=== PATIENT | male | born 1945 | race Caucasian/White ===

== ENCOUNTER 2021-01-30 11:32 | Outpatient (REF) | payer MEDICARE, SELFPAY ==
--- NOTE | ~2021-01-30 | XR_ITS ---
EXAMINATION: XR LUMBOSACRAL SPINE WITH OBLIQUES CLINICAL INFORMATION: Low back pain COMPARISON: None TECHNIQUE: AP, both oblique, and lateral views of the lumbar spine. Lateral view of the lumbosacral junction. FINDINGS: There is mild curvature of the lower lumbar spine to the right. Bone alignment is otherwise normal. No fracture or dislocation is seen. There is multilevel degenerative spondylosis. There is degenerative disc disease at L5-S1. 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 No pars defect is seen. There is evidence of atherosclerotic disease. XR/XR lumbar spine 4V min IMPRESSION: Degenerative changes with degenerative disc disease at L5-S1, lower lumbar spine facet arthritis and multilevel degenerative spondylosis.
== END 2021-01-30 11:33 | disposition home or self-care (01) ==
LOC: HO.XRAY 11:32
PROVIDERS: PCP Nurse Practitioner; Visit Provider Nurse Practitioner Family
DX: M54.5 Low back pain (principal)
CPT/HCPCS: 72110

== ENCOUNTER 2021-12-17 13:51 | Outpatient (REF) | payer MEDICARE, SELFPAY ==
--- NOTE | ~2021-12-17 | CT_ITS ---
EXAMINATION: CT ABDOMEN AND PELVIS WITHOUT CONTRAST CLINICAL INFORMATION: Hematuria, flank pain. COMPARISON: None TECHNIQUE: Multidetector volumetric imaging was performed from the superior aspect of the liver through the pubic symphysis. Sagittal and coronal reformatted images were obtained on the technologist's workstation. This CT examination was performed using dose optimization techniques as appropriate, variously including the following: *Automated exposure control *Adjustment of mA and/or kV according to patient size (this includes techniques or standardized protocols for targeted exams where dose is matched to indication/reason for exam; i.e. extremities or head) *Use of iterative reconstruction technique DLP: 454 mGy-cm FINDINGS: LUNG BASES: The lung bases are clear. The heart size is normal. LIVER, GALLBLADDER, AND BILIARY TREE: The liver is normal in size, shape, and attenuation. No focal hepatic lesion or biliary ductal dilatation is present. The gallbladder is unremarkable with no evidence of radiopaque gallstones, gallbladder wall thickening, or obvious pericholecystic inflammatory changes. PANCREAS: Unremarkable. SPLEEN: Unremarkable. ADRENAL GLANDS: Unremarkable. KIDNEYS AND URETERS: The kidneys are normal in size, shape, and attenuation. There are two, 2 mm nonobstructive radiopaque calculi in the mid pole of the left kidney. There is a peripelvic right renal cyst. Minimal bilateral perinephric stranding is seen. BLADDER: There is mild bladder wall thickening but no radiopaque calculi are seen. There is hypertrophic changes along the superoposterior aspect of the pubic symphysitis indenting the anterior bladder wall. GASTROINTESTINAL TRACT: There is scattered stool and gas seen throughout the colon without any significant distention. Appendix is normal in caliber. The small bowel loops are of normal caliber. ABDOMINAL WALL: No significant hernia is appreciated. LYMPH NODES: Normal. VASCULAR: There is atherosclerotic calcification of the abdominal aorta without aneurysmal dilatation. PELVIC VISCERA: The prostate gland is mildly enlarged extending to the base of the bladder. OSSEOUS STRUCTURES: Anterior superior thickening of the pubic symphysis is likely a large enthesophyte. There are degenerative disc changes and vacuum disc phenomena L4-L5 and L5-S1 disc levels with moderate ventral spondylosis. CT/CT abdomen pelvis wo con IMPRESSION: There are two, 2 mm radiopaque calculi at the midpole of the left kidney without caliectasis or hydronephrosis. There are right renal parapelvic cysts in the lower pole. No hydronephrosis or radiopaque calculi. Mild prostate enlargement extending into the base of bladder with anterior bladder wall thickening. Mild constipation. Normal appendix..
== END 2021-12-17 13:52 | disposition home or self-care (01) ==
LOC: HO.CT 13:51
PROVIDERS: PCP Nurse Practitioner; Visit Provider Emergency Medicine
DX: R31.29 Other microscopic hematuria (principal); R10.9 Unspecified abdominal pain; Z80.42 Family history of malignant neoplasm of prostate
CPT/HCPCS: 74176

== ENCOUNTER 2023-04-26 09:54 | Outpatient (REF) | payer OTHER, MEDICAID, SELFPAY ==
--- NOTE | ~2023-04-26 | XR_ITS ---
EXAMINATION: XR HIP, LEFT CLINICAL INFORMATION: Chronic left hip pain. COMPARISON: None available. TECHNIQUE: AP and frog-leg lateral views of the left hip. FINDINGS: No fracture. Alignment is anatomic. Hip joint space is maintained. The femoral heads are smooth. 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 The soft tissue planes are unremarkable. XR/XR hip LT min 2V IMPRESSION: Unremarkable radiographic appearance of the left hip.
[2023-04-26 11:19] LABS: Appearance Urine Clear; Color Urine Yellow; Glucose Urine UA Negative (Negative); Leukocyte Esterase Urine Trace (Negative); Nitrite Urine Negative (Negative); PH 5.5 (5.0-9.0); Specific Gravity - Urine 1.025 (1.005-1.025); UMIC TRIGGER UACC YES; Urine Blood Small (1+) (Negative); Urine Ketones Negative (Negative); Urine Protein Negative (Neg-Trace)
[2023-04-26 11:42] LABS: Bacteria Urine None Seen (None Seen); Calcium Oxalate Crystals Urine Present; Hyaline Casts Urine 0-2 /LPF (0-2); UACC Culture Trigger YES
[2023-04-26 12:04] LABS: Estimated Average Glucose 126 mg/dL
[2023-04-26 12:07] LABS: Alanine Aminotransferase 14 U/L (0-40); Albumin Level 4.5 g/dL (3.5-5.0); Alkaline Phosphatase 81 U/L (39-117); Anion Gap 13 (12-20); Aspartate Amino Transferase 20 U/L (5-37); Bilirubin Total 0.8 mg/dL (0.0-1.0); Blood Urea Nitrogen 19 mg/dL (9-16); Calcium 9.6 mg/dL (8.4-10.2); Carbon Dioxide 26 mmol/L (22-29); Chloride 102 mmol/L (96-108); Cholesterol 164 mg/dL (<200); Estimated Glomerular Filt Rate > 60; Glucose Random 110 mg/dL (60-115); HDL Cholesterol 49 mg/dL (>40); LDL Cholesterol Calculated 91 mg/dL (<100); Potassium 4.7 mmol/L (3.3-5.1); Sodium 136 mmol/L (135-145); Total Protein 8.3 g/dL (6.5-8.0); Triglycerides 124 mg/dL (<150)
[2023-04-26 12:09] LABS: TSH reflex Free T4 3.29 uIU/mL (0.32-4.0)
== END 2023-04-26 09:55 | disposition home or self-care (01) ==
LOC: HO.HHCL 09:54
PROVIDERS: Visit Provider General Practice
DX: I10 Essential (primary) hypertension (principal); E03.9 Hypothyroidism, unspecified; M25.552 Pain in left hip; R82.90 Unspecified abnormal findings in urine; R73.03 Prediabetes
CPT/HCPCS: 36415; 73502; 80053; 80061; 81001; 83036; 84443; 87086

== ENCOUNTER 2023-05-31 14:44 | Outpatient (REF) | payer OTHER, MEDICAID, SELFPAY ==
--- NOTE | ~2023-05-31 | US_ITS ---
EXAMINATION: US RETROPERITONEAL LIMITED (RENAL ONLY) CLINICAL INFORMATION: Chronic left flank pain. COMPARISON: CT abdomen and pelvis without contrast 12/17/2021. TECHNIQUE: Real-time imaging of the kidneys. Limited visualization due to bowel gas. FINDINGS: RIGHT KIDNEY: 11.4 x 5.6 x 5.8 cm (SAG x AP x TRV). Renal cortical thickness is normal. A 2.0 x 1.8 x 2.0 cm anechoic central fluid collection likely represents a parapelvic cyst rather than an extrarenal pelvis and was identified on prior CT scan. There is a 0.3 cm lateral lower pole calculus. Limited visualization. LEFT KIDNEY: 11.3 x 5.3 x 5.4 cm (SAG x AP x TRV). There are 2 mid pole calculi each measuring 0.3 cm. No hydronephrosis. Renal cortical thickness is normal. Limited visualization. US/US renal BI IMPRESSION: 1. Bilateral nonobstructive renal calculi. No hydronephrosis. 2. Right renal 2.0 cm parapelvic cyst.
== END 2023-05-31 14:45 | disposition home or self-care (01) ==
LOC: HO.US 14:44
PROVIDERS: Visit Provider General Practice
DX: R10.9 Unspecified abdominal pain (principal)
CPT/HCPCS: 76775

== ENCOUNTER 2024-01-17 16:09 | Outpatient (REF) | payer MEDICARE, SELFPAY | END 2024-01-17 16:10 | disposition home or self-care (01) | LOC: HO.HHCLNP 16:09 | PROVIDERS: Visit Provider General Practice | DX: R31.0 Gross hematuria (principal) | CPT/HCPCS: 87086 ==

== ENCOUNTER 2024-01-21 11:38 | Outpatient (REF) | payer MEDICARE, SELFPAY ==
--- NOTE | ~2024-01-21 | US_ITS ---
EXAMINATION: US RETROPERITONEAL COMPLETE (RENAL) CLINICAL INFORMATION: Gross hematuria. COMPARISON: 05/31/2023, 12/17/2021 TECHNIQUE: Real-time imaging of the kidneys and bladder. Limited visualization due to bowel gas. FINDINGS: RIGHT KIDNEY: 11.2 x 5.5 x 5.6 cm (SAG x AP x TRV). No hydronephrosis. No renal calculi. Renal cortical thickness is normal. Limited visualization. Multiple renal cysts, largest 2.2 cm. LEFT KIDNEY: 12.1 x 6.3 x 5.5 cm (SAG x AP x TRV). 0.2 cm mid pole calculus. No hydronephrosis. Renal cortical thickness is normal. Limited visualization. 0.9 cm midpole pole cyst with benign features. There is no indication for follow-up imaging. Hypoechoic area near the cortex of the lower pole of the left kidney may represent a small amount of free fluid, versus atypical cyst versus other etiology. US/US renal BI IMPRESSION: 1. 0.2 cm left renal calculus. No hydronephrosis. 2. Hypoechoic area near the cortex of the lower pole of the left kidney may represent a small amount of free fluid, versus atypical cyst versus other etiology and was not identified on the prior exam. CT scan recommended for further evaluation. Electronically signed by: Ailin Hays MD 01/26/2024 03:53 PM EDT
== END 2024-01-21 11:39 | disposition home or self-care (01) ==
LOC: HO.US 11:38
PROVIDERS: PCP General Practice; Visit Provider General Practice
DX: R31.0 Gross hematuria (principal)
CPT/HCPCS: 76775

== ENCOUNTER 2024-02-22 12:14 | Outpatient (REF) | payer MEDICARE, SELFPAY ==
--- NOTE | ~2024-02-22 | XR_ITS ---
EXAMINATIONS: XR KNEE, RIGHT XR KNEE, LEFT CLINICAL INFORMATION: Bilateral knee pain with ambulation. Limited range of motion. COMPARISON: None available. TECHNIQUES: Four views of the right knee. Four views of the left knee. FINDINGS: Right: Normal variant bipartite patella. No fracture or joint effusion patient. Alignment is anatomic. Mild joint space narrowing most notably involving the lateral compartment. No abnormal soft tissue calcification. Mild vascular calcification. Left: No fracture or joint effusion patient. Alignment is anatomic. Mild to moderate joint space narrowing most notably involving the medial compartment. No abnormal soft tissue calcification. XR/XR knee LT 4V IMPRESSION: Mild joint space narrowing of the right knee most notably involving the lateral compartment. Mild to moderate joint space narrowing of the left knee most notably involving the medial compartment. Electronically signed by: Delvis Schmitt MD 02/22/2024 02:02 PM EDT
--- NOTE | ~2024-02-22 | XR_ITS ---
EXAMINATIONS: XR KNEE, RIGHT XR KNEE, LEFT CLINICAL INFORMATION: Bilateral knee pain with ambulation. Limited range of motion. COMPARISON: None available. TECHNIQUES: Four views of the right knee. Four views of the left knee. FINDINGS: Right: Normal variant bipartite patella. No fracture or joint effusion patient. Alignment is anatomic. Mild joint space narrowing most notably involving the lateral compartment. No abnormal soft tissue calcification. Mild vascular calcification. Left: No fracture or joint effusion patient. Alignment is anatomic. Mild to moderate joint space narrowing most notably involving the medial compartment. No abnormal soft tissue calcification. XR/XR knee RT 4V IMPRESSION: Mild joint space narrowing of the right knee most notably involving the lateral compartment. Mild to moderate joint space narrowing of the left knee most notably involving the medial compartment. Electronically signed by: Delvis Scmhitt MD 02/22/2024 02:02 PM EDT RP
== END 2024-02-22 12:15 | disposition home or self-care (01) ==
LOC: HO.HHCX 12:14
PROVIDERS: Visit Provider General Practice
DX: M25.562 Pain in left knee (principal); M25.561 Pain in right knee; G89.29 Other chronic pain
CPT/HCPCS: 73564

== ENCOUNTER 2024-04-10 10:15 | Outpatient (REF) | payer MEDICARE, SELFPAY ==
[2024-04-10 11:37] LABS: MANUAL DIFF FLAG NO
[2024-04-10 12:03] LABS: Basophils Absolute Auto 0.1 X10*3/uL (0.0-0.2); Basophils Percent Auto 0.8 % (0-2); Eosinophils Absolute Auto 0.1 X10*3/uL (0.0-0.4); Eosinophils Percent Auto 1.4 % (0-4); Hematocrit 52.1 % (42.0-52.0); Hemoglobin 17.7 g/dl (14.0-18.0); Imm Gran Abs Auto 0.07 X10*3/uL (0.00-0.03); Imm Gran Pct Auto 0.9 % (0.0-0.4); Mean Corpuscular Hemoglobin 30.7 pg (27.0-33.0); Mean Corpuscular Volume 90.3 fL (80.0-98.0); Mean Platelet Volume 9.9 fL (9.4-12.4); Monocytes Absolute Auto 0.7 X10*3/uL (0.1-1.2); Monocytes Percent Auto 8.7 % (2-11); Neutrophils Absolute Auto 4.8 x10*3/uL (2.0-8.3); Neutrophils Percent Auto 62.2 % (45-73); Platelet Count 272 X10*3/uL (160-400); Red Blood Count 5.77 X10*6/uL (4.60-5.80); Red Cell Distribution Width 13.1 % (11.0-16.0); White Blood Count 7.7 X10*3/uL (4.8-10.8)
[2024-04-10 12:21] LABS: Alanine Aminotransferase 24 U/L (0-40); Albumin Level 4.3 g/dL (3.5-5.0); Alkaline Phosphatase 75 U/L (39-117); Anion Gap 12 (12-20); Aspartate Amino Transferase 25 U/L (5-37); Bilirubin Total 0.4 mg/dL (0.0-1.0); Blood Urea Nitrogen 15 mg/dL (9-16); Calcium 9.3 mg/dL (8.4-10.2); Carbon Dioxide 29 mmol/L (22-29); Chloride 102 mmol/L (96-108); Estimated Glomerular Filt Rate > 60; Glucose Random 169 mg/dL (60-115); Sodium 139 mmol/L (135-145); Total Protein 7.8 g/dL (6.5-8.0)
[2024-04-10 12:25] LABS: Prostate Specific Antigen 0.27 ng/mL (<0.05-4.0)
[2024-04-10 12:48] LABS: TSH reflex Free T4 4.87 uIU/mL (0.32-4.0)
[2024-04-10 13:34] LABS: Free T4 (Free Thyroxine) 0.79 ng/dL (0.71-1.85)
[2024-04-13 03:48] LABS: TS Negative Control Passed; TS Panel A 0; TS Panel B 0; TS Positive Control Passed; TSpotTB Negative (Negative)
== END 2024-04-10 10:16 | disposition home or self-care (01) ==
LOC: HO.HHCL 10:15
PROVIDERS: Visit Provider General Practice
DX: Z00.00 Encounter for general adult medical examination without abnormal findings (principal); Z11.1 Encounter for screening for respiratory tuberculosis; Z12.5 Encounter for screening for malignant neoplasm of prostate; D45 Polycythemia vera; I10 Essential (primary) hypertension; E03.9 Hypothyroidism, unspecified; N39.0 Urinary tract infection, site not specified
CPT/HCPCS: 36415; 80053; 84153; 84439; 84443; 85025; 86481; 87086

== ENCOUNTER 2024-07-13 16:16 | Outpatient (REF) | payer MEDICARE, SELFPAY ==
--- OUTSIDE RECORDS SUMMARY | 2024-07-13 16:49 | XMS_ITS | Encounter Summary ---
Author Organization [employer] Address [address] [place] [address] Care Team Providers Care Rn Neonatal Icu Name Role Phone Jill Feliciano MD Primary Care Provider [phone] Encounter Details Date Type Department Care Team (Latest Contact Info) Description 07/13/2024 Travel Social History Tobacco Use Types Packs/Day Years Used Date Smoking Tobacco: Former Cigarettes Smokeless Tobacco: Never Alcohol Use Standard Drinks/Week Comments Never 0 (1 standard drink = 0.6 oz pur e alcohol) Depression Answer Date Recorded Patient Health Questionnaire-9 Score 0 07/23/2023 Patient Health Questionnaire-9 Score 0 07/23/2023 Last PHQ-9: Questionnaire Data Not on file 0 07/23/2023 Housing Stability Answer Date Recorded What is your housing situation today? I have jorge rizzo 07/15/[address] you li ve. Do you have problems with any of the following? None of the above 07/15/2023 Food Insecurity Answer Date Recorded Within the past 12 months, y ou worried that your food would run out before you got money to buy more: Never True 07/15/2023 Within the past 12 months,th e food you bought just didn't last and you didn't have enough money to get more: Never True Transportation Answer Date Recorded In the past 12 months, has l ack of transportation kept you from medical appts, meetings, work or from getting things needed for daily living? Yes, it has kept me from medical appointments or getting medications. 07/23/2023 Utilities Answer Date Recorded In the past 12 months, has t he electric, gas, oil or water company threatened to shut off services in your home? No 07/15/2023 Depression Answer Date Recorded Patient Health Questionnaire-2 Score 0 07/23/2023 Sex and Gender Information Value Date Recorded Sex Assigned at Male 03/23/2022 10:33 AM EDT Legal Sex Male 10:33 AM EDT Gender Identity Male 03/23/2022 10:33 AM EDT Sexual Orientation Don't know 03/23/2022 10 :33 AM EDT documented as of this encounter Plan of Treatment Upcoming Encounters Date Type Department Care Team (Late st Contact Info) Description 09/05/2024 10:30 AM EDT Office Visit [facility] [address] [place] [address] Jill Feliciano MD [address] [place] [address] documented as of this encounter Visit Diagnoses Not on filedocumented in this encounter Additional Health Concerns Assessment Noted Time PHQ-9 Depression Total Score: 0 07/23/19 24 10:42 AM EST documented as of this encounter Care Teams Rn Neonatal Icu Relationship Specialty Start Date End Date Jill Feliciano MD [address] [place] [phone] PCP - General Family Medicine 01/13/22 documented as of this encounter
--- OUTSIDE RECORDS SUMMARY | 2024-07-13 16:49 | XMS_ITS | Encounter Summary ---
Author Organization [employer] Address [address] [place] [address] Care Team Providers Care Electrical Hardware Engineer Name Role Phone Jill Feliciano MD Primary Care Provider [phone] Encounter Details Date Type Department Care Team (Late Contact Info) Description 01/22/2023 Abstract [facility] [address] [place] [address] [phone] Jill Feliciano MD [address] [place] [address] [phone] Social History Tobacco Use Types Packs/Day Years Used Date Smoking Tobacco: Former Cigarettes Smokeless Tobacco: Never Alcohol Use Standard Drinks/Week Comments Never 0 (1 standard drink = 0.6 oz pur e alcohol) Depression Answer Date Recorded Patient Health Questionnaire-9 Score 0 06/12/2022 Depression Answer Date Recorded Patient Health Questionnaire-2 Score 0 06/12/2022 Sex and Gender Information Value Date Recorded Sex Assigned at Male 03/23/2022 10:33 AM EDT Legal Sex Male 10:33 AM EDT Gender Identity Male 03/23/2022 10:33 AM EDT Sexual Orientation Don't know 03/23/2022 10 :33 AM EDT documented as of this encounter Plan of Treatment Upcoming Encounters Date Type Department Care Team (Late st Contact Info) Description 09/05/2024 10:30 AM EDT Office Visit [facility] [address] [place] [address] [phone] Jill Feliciano MD [address] [place] [address] [phone] documented as of this encounter Visit Diagnoses Not on filedocumented in this encounter Additional Health Concerns Assessment Noted Time PHQ-9 Depression Total Score: 0 06/12/19 23 11:12 AM EST documented as of this encounter Care Teams Electrical Hardware Engineer Relationship Specialty Start Date End Date Jill Feliciano MD [address] [place] [address] PCP - General Family Medicine 01/13/22 documented as of this encounter
--- OUTSIDE RECORDS SUMMARY | 2024-07-13 16:49 | XMS_ITS | Encounter Summary ---
Author Organization [employer] Address [address] [place] [address] Care Team Providers Care Senior Windows Administrator Name Role Phone Jill Feliciano MD Primary Care Provider [phone] Reason for Visit * Reason Onset Date Comments recall 06/29/2024 Encounter Details Date Type Department Care Team (Late st Contact Info) Description 06/29/2024 Telephone [facility] [address] [place], [place] [phone] Jazmine Coello MA recall Social History Tobacco Use Types Packs/Day Years [...] AM EDT documented as of this encounter Miscellaneous Notes * Telephone Encounter - Jazmine Coello MA - 06/29/2024 2:59 PM EST T/C placed spoke with pt, pt agreed to come in on 09/05/24 at 10:30am documented in this encounter Plan of Treatment Upcoming Encounters Date Type Department Care Team (Late st Contact Info) Description 09/05/2024 10:30 AM EDT Office Visit [facility] [address] [place] [address] Jill Feliciano MD [address] [place] [address] documented as of this encounter Visit Diagnoses Not on filedocumented in this encounter Additional Health Concerns Assessment Noted Time PHQ-9 Depression Total Score: 0 07/23/19 24 10:42 AM EST documented as of this encounter Care Teams Senior Windows Administrator Relationship Specialty Start Date End Date Jill Feliciano MD [address] [place] [address] PCP - General Family Medicine 01/13/22 documented as of this encounter
--- OUTSIDE RECORDS SUMMARY | 2024-07-13 16:49 | XMS_ITS | Clinical Summary ---
Author Organization [employer] Address [address] [place] [address] Care Team Providers Care High School Library Media Specialist Name Role Phone Jill Feliciano MD Primary Care Provider [phone] Allergies No known active allergies Medications tamsulosin (Flomax) 0.4 MG 24 hr capsule Take 1 capsule (0.4 mg) by mouth Once per day. 30 capsule 1 01/17/20 24 Active amLODIPine (Norvasc) 10 MG tabletIndications: Essential hypertension take 1 tablet by oral route every day for blood pressure 90 tablet 3 02/22/20 24 Active atorvastatin (Lipitor) 40 MG tabletIndications: Mixed hyperlipidemia take 1 tablet by oral route every day at bedtime for cholesterol 90 tablet 3 02/22/20 24 Active oxybutynin XL (Ditropan-XL) 10 MG 24 hr tablet Take 1 tablet (10 mg) by mouth Once per day. 90 tablet 3 02/22/20 24 025 Active ketoconazole (Nizoral) 2 % shampooIndications :Seborrheic dermatitis Apply topically 2 (two) times a week. 120 mL 3 02/24/20 24 Active spironolactone (Aldactone) 50 MG tablet Take 1 tablet (50 mg) by mouth Once per day. 90 tablet 3 02/22/20 24 025 Active losartan (Cozaar) 100 MG tablet Take 1 tablet (100 mg) by mouth Once per day. 90 tablet 3 04/10/20 24 025 Active levothyroxine (Synthroid) 75 MCG tablet Take 1 tablet (75 mcg) by mouth before breakfast. 90 tablet 3 05/18/20 24 025 Active acetaminophen (Tylenol Extra Strength) 500 MG tabletIndications: Breast pain, left Take 1 tablet (500 mg) by mouth every 6 (six) hours if needed for mild pain for up to 10 days. 30 tablet 07/13/19 25 025 Active Active Problems Problem Noted Date Diagnosed Date Bilateral primary osteoarthritis of knee 024 Assessment & Plan (04/10/2024 2:02 PM EST): Would like to have handicap placard Instructions given to see medical records today Left groin pain 07/23/2023 Assessment & Plan (07/23/2023 11:12 AM EST): L soft tissue US to determine LAD versus hernia, palpable mass is present Chronic left flank pain 04/28/2023 Assessment & Plan (04/28/2023 8:03 AM EST): UA suggestive of infection, though not definitive Will obtain urgent imaging of L kidney for kidney stone Consult urology here Hematuria 10/06/2022 Overview (02/22/2024): -Work up neg for malignancy 01/30/22. -Followed by Dr. Godwin of [facility] -Hematuria in past thought to be due to passing stones. -He was to follow up for Ultrasound in July with Urology. -Recommend f/o with urologist, referral replaced 02/22/24 -Encouraged increased fluid intake. Assessment & Plan (02/22/2024 12:49 PM EDT): Seen in walkin for gross hematuria 01/17/24, neg urine culture, renal ultrasound demonstrated nonobstructing stones and L kidney cyst Referral replaced to [facility], who had been following him previously Assessment & Plan (01/17/2024 9:52 AM EDT): Urine today shows mod blood, negative nitrates, small leukocytes. Urine culture sent No signs or pyelo or other systemic infection Will repeat renal ultrasound Trial Flomax x 30 days Followup with urology Assessment & Plan (10/06/2022 9:10 AM EDT): -Work up neg for malignancy 01/30/22. -Followed by Dr. Godwin of [facility] -Hematuria in past thought to be due to passing stones. -He was to follow up for Ultrasound in July with Urology. -Urine today shows small blood, negative nitrates, negative leukocytes. -Given dysuria will check for UTI. -Recommend f/o with urologist, he was given the number to call. Polycythemia vera 06/15/2022 Assessment & Plan (04/10/2024 2:05 PM EST): H/H today Assessment & Plan (06/15/2022 9:07 AM EST): Re-refer to hematology for phlebotomy H/H Erythrocytosis 06/10/2022 Obstructive sleep apnea syndrome 03/10/2022 Nephrolithiasis 03/03/2022 Prediabetes 03/03/2022 Assessment & Plan (06/15/2022 9:06 AM EST): Check A1C Low sugar/carb diet Benign prostatic hyperplasia 03/03/2022 Assessment & Plan (04/10/2024 2:03 PM EST): Continue Flomax PSA normal today See if urology needs to scope him due to hematuria Hypothyroidism 10/12/2021 Assessment & Plan (04/10/2024 2:03 PM EST): Continue Synthroid 50mcg daily in the AM before other medications Assessment & Plan (04/28/2023 8:04 AM EST): Continue Synthroid 50mcg daily in the AM before other medications Assessment & Plan (06/15/2022 9:06 AM EST): On Synthroid 50mcg daily Check TSH Seborrheic dermatitis 03/15/2018 Assessment & Plan (06/15/2022 9:07 AM EST): Ketoconazole shampoo re-ordered Impacted cerumen 07/06/2017 Cervical spondylosis without myelopathy 07/06/19 18 Neck pain 06/22/2017 Hypertensive disorder 06/22/2017 Assessment & Plan (04/10/2024 2:01 PM EST): Increase Losartan to 100mg daily Pt is not at BP goal <140/90 Continue amlodipine 10, Lipitor 40 Assessment & Plan (02/22/2024 12:50 PM EDT): Wants to switch pharmacies now to [facility] Amlodipine 20, Lipitor 40, Oxybutynin, Losartan, Aldactone, Synthroid all sent there Assessment & Plan (07/27/2023 6:46 AM EST): Called Anurag on [facility] in [place] to transfer all of his medications. He says he will go pick them up today. He understands the risks of untreated hypertension Assessment & Plan (04/28/2023 8:05 AM EST): Normal renal function, restart Losartan and Spironalactone Continue to monitor BP at home Recheck with nurse visit in 2-4 weeks ER for any symptoms of ID or stroke Assessment & Plan (10/06/2022 9:23 AM EDT): Initial BP systolic 180, it did come down to 170. Pt states he took his medication this morning, asymptomatic. We discussed making sure he takes medication, maintains a low salt diet, and f/u with PCP 1 week for BP check. Assessment & Plan (06/15/2022 9:06 AM EST): Maintenance: controlled on Amlodipine 10mg, Lisinopril 20, hydrochlorothiazide 25mg BMP: Cr 1.54/eGFR 50 Lipid Panel: ASCVD Risk: Calculate pending updated labs EKG: Obtain baseline at f/u - Aerobic exercise to reduce BP. Initial goal of 30 min walk 3-5x/week. Increase as tolerated. - low-sodium diet (goal: <2g/day) and heart healthy diet such as DASH to reduce BP and prevent ASCVD. - Home BP monitoring 1-2 x day with goal of <140/90. - Seek immediate medical attention for chest pain, palpitations, SOB, syncope, or sudden changes in mental status. - Do not change or discontinue current prescriptions without first consulting health care provider Encounters Date Type Department Care Team Description 07/13/2024 4:00 PM EST Office Visit [facility] [address] [place] [address] Breast pain, left (Primary Dx); Elevated blood pressure reading in office with diagnosis of hypertension 07/13/2024 Travel 06/29/2024 Telephone [facility] [address] [place] [address] Jazmine Coello MA recall 05/18/2024 Orders Only [facility] [address] [place] [phone] Jill Feliciano MD 05/01/[address] [phone] Tamela Newby RN Results from Last 3 Months Immunizations Name Administration Dates Next Due Influenza injectable quadriv alent IIV4 with preservative 06/22/2017 Pfizer Covid-19 Vaccine 12+ 08/08/2020, Pneumococcal Conjugate PCV 13 06/22/2017 Pneumococcal Polysaccharide PPSV23 08/11/2021 Tdap 10/08/2021 Social History Tobacco Use Types Packs/Day Years Used Date Smoking Tobacco: Former Cigarettes Smokeless Tobacco: Never Tobacco Cessation:Counseling Given: Not Answered Alcohol Use Standard Drinks/Week Comments Never 0 [...] Don't know 03/23/2022 10 :33 AM EDT Last Filed Vital Signs Vital Sign Reading Time Taken Comments Blood Pressure 153/96 07/13/2024 3:50 PM EST Pulse 87 07/13/2024 3:50 PM EST Temperature 36.3 ??C (97.4 ??F) 07/13/2024 3:50 PM ES T Respiratory Rate 18 07/13/2024 3:50 PM EST Oxygen Saturation 97% 07/13/2024 3:50 PM EST Inhaled Oxygen Concentration - - Weight 84.2 kg (185 lb 9.6 oz) 07/13/2024 3:50 P M EST Height 170.2 cm (5' 7 ) 04/10/2024 9:37 AM EST Body Mass Index 29.07 04/10/2024 9:37 AM EST Plan of Treatment Upcoming Encounters Date Type Department Care Team (Late st Contact Info) Description 09/05/2024 10:30 AM EDT Office Visit [facility] [address] [place] [address] Jill Feliciano MD [address] [place] [address] Health Maintenance Due Date Last Done Comments Zoster Vaccines (1 of 2) 09/21/1997 RSV Patients and Patients Aged 60 years or older (1 - 1-dose 75+ series) 09/21/2022 COVID-19 Vaccine ( season) 2024 02/23/2022, 03/27/2021, 08/08/2020, Additional history exists Influenza Vaccine (#1) 2024 06/22/2017 Diabetes: Hemoglobin A1C 04/26/2024 023, 06/12/2022, 08/11/2021, Additional history exists Alcohol/Substance Use Screening 07/22/2024 07/23/2023 Depression Screening 07/22/2024 07/23/2023, 07/23/19 24 SDOH Screening 07/22/2024 07/23/2023 Tobacco Screening 04/10/2025 04/10/2024 Lipid Panel 04/26/2028 04/26/2023, 07/23, 01/24/2020 DTaP/Tdap/Td Vaccines (2 - Td or Tdap) 10/09/2031 10/08/2021 Colonoscopy Discontinued 07/29/2017 Colorectal Cancer Screening Discontinued Pneumococcal Vaccine: 50+ Years Completed 08/11/2021, 06/22/2017 Hepatitis C Screening Completed 10/08/2021 CT Colonography Discontinued FIT DNA/Cologuard Discontinued FIT Discontinued FOBT Discontinued HIB Vaccines Aged Out No longer eligi ble based on patient's age to complete this topic HPV Vaccines Aged Out No longer eligi ble based on patient's age to complete this topic Hepatitis A Vaccines Aged Out No long er eligible based on patient's age to complete this topic Hepatitis B Vaccines Aged Out No long er eligible based on patient's age to complete this topic IPV Vaccines Aged Out No longer eligi ble based on patient's age to complete this topic Meningococcal Vaccine Aged Out No ewelina manda eligible based on patient's age to complete this topic RSV under 20 months Aged Out No longe r eligible based on patient's age to complete this topic Rotavirus Vaccines Aged Out No longer eligible based on patient's age to complete this topic Sigmoidoscopy Discontinued Procedures Procedure Name Priority Date/Time Associated Diagnosis Comments HEMOGLOBIN A1C Routine 04/26/2023 9:56 AM EST Primary hypertension LIPID PANEL, STANDARD Routine 04/26/2023 9:56 AM EST Primary hypertension ZZZ HISTORICAL HEPATITIS C AB W/REFL TO HCV RNA, QN, PCR Routine 10/08/2021 2:44 PM EDT HM COLONOSCOPY Routine 07/29/2017 from Last 3 Months or Most Recently Relevant to Health Maintenance Results * Hemoglobin A1c (04/26/2023 9:56 AM EST) Hemoglobin A1c 6.0 <6.0 % [facility] Comment:Hemoglobin A1C Refer ence Range Adults: 4.8 - 6.0 % Non diabetic: < 6.0 % Goal: < 7.0 %Additional Action Suggested: > 8.0 %Note: Hemoglobin A1c results are invalid for patients with abnormal amounts of HbF. Blood transfusions may impact the HbA1c concentration in the patient sample. Estimated Average Glucose 126 mg/dL [facility] Comment:eAG = Estimated ave rage glucose which is %A1C expressed asaverage glucose, using the formula of the [id number]-[id number] Glucose study (ADAG), Diabetes Care, Vol.31,#8,Dec. 2007 Blood Venous blood specimen / Unknown 04/26/2023 9:56 AM EST 04/26/2023 11:06 AM EST us Jill Feliciano MD LAB BLOOD ORDERABLES Final Res ult [facility] [address] [place] [phone] * Lipid Panel, Standard (04/26/2023 9:56 AM EST) Triglycerides 124 <150 mg/dL [facility] Comment:Desirable Triglyceri de: less than 150 mg/dLBorderline High Triglyceride 150-199 mg/dLHigh Triglyceride: 200-499 mg/dLVery High Triglyceride: greater than or equal to 5OO mg/dL Cholesterol 164 <200 mg/dL [facility] Comment:Desirable Cholestero l: less than 200 mg/dLBorderline High Cholesterol: 200-239 mg/dLHigh Cholesterol: greater than 239 mg/dL LDL Cholesterol Calculated 91 <100 mg/dL [facility] Comment:Desirable LDL: less than 100 mg/dLNear Optimal/Above Optimal LDL: 110- 129 mg/dLBorderline High LDL: 130-159 mg/dLHigh LDL: 160-189 mg/dLVery High LDL: greater than or equal to 190 mg/dL HDL Cholesterol 49 >40 mg/dL [facility] Comment:Desirable HDL: great er than 40 mg/dL Note: This HDL assay may give artificially low results in patients with liver disease. Blood Venous blood specimen / Unknown 04/26/2023 9:56 AM EST 04/26/2023 11:06 AM EST us Jill Feliciano MD LAB BLOOD ORDERABLES Final Res ult Performing Organization Address [facility] Co de Phone Number [facility] [address] [place] [phone] * HEPATITIS C AB W/REFL TO HCV RNA, QN, PCR (10/08/2021 2:44 PM EDT) HEPATITIS C ANTIBODY NON-REACT [facility] NON-REACT [facility] INDEX 0.04 <1.00 [facility] Comment: ?? HCV antibody was non-reactive. There is no laboratory ?? evidence of HCV infection. ?? In most cases, no further action is required. However, if recent HCV exposure is suspected, a test for HCV RNA (test code 97941) is suggested. ?? For additional information please refer to [email or web address] (This link is being provided for informational/ educational purposes only.) ?? 10/08/2021 2:44 PM EDT us Martha Burdick NP HISTORICAL/NON ORDERABLE LABS F inal Result Performing Organization Address [facility] Co de Phone Number [facility] [address] * Hm Colonoscopy (07/29/2017) Historical Provider HEALTH MAINTENANCE Final Result from Last 3 Months or Most Recently Relevant to Health Maintenance Insurance STANDARD [employer] MEDICARE REPLACEMENT Care Teams High [employer] Library Media Specialist Relationship Specialty Start Date End Date Jill Feliciano MD [address] [place] [phone] PCP - General Family Medicine 01/13/22
--- OUTSIDE RECORDS SUMMARY | 2024-07-13 16:49 | XMS_ITS | Encounter Summary ---
Author Organization [employer] Address [address] [place] [address] Care Team Providers Care Unclaimed Property Manager Name Role Phone Jill Feliciano MD Primary Care Provider [phone] Reason for Visit * Reason Comments nipple mass Encounter Details Date Type Department Care Team (Late st Contact Info) Description 07/13/2024 4:00 PM EST Office Visit [facility] [address] [place] [address] Breast pain, left (Primary Dx); Elevated blood pressure reading in office with diagnosis of hypertension Social History Tobacco Use Types Packs/Day Years [...] AM EDT documented as of this encounter Last Filed Vital Signs Vital Sign Reading [...] oz) 07/13/2024 3:50 P M EST Height - - Body Mass Index 29.07 04/10/2024 9:37 AM EST documented in this encounter Plan of Treatment Upcoming Encounters Date Type Department Care Team (Late st Contact Info) Description 09/05/2024 10:30 AM EDT Office Visit [facility] [address] [place] [phone] Jill Feliciano MD [address] [place] [phone] Scheduled Orders Name Type Priority Associated Diagnoses Orde r Schedule CBC auto differential Lab Routine Breast pain, left Expected: 07/13/2024 (Approximate), Expires: 07/13/2025 documented as of this encounter Visit Diagnoses Diagnosis Breast pain, left- Primary Elevated blood pressure reading in office with diagnosis of hypertension documented in this encounter Additional Health Concerns Assessment Noted Time PHQ-9 Depression Total Score: 0 07/23/19 10:42 AM EST documented as of this encounter Care Teams Unclaimed Property Manager Relationship Specialty Start Date End Date Jill Feliciano MD [address] [place] [address] PCP - General Family Medicine 01/13/22 documented as of this encounter
--- OUTSIDE RECORDS SUMMARY | 2024-07-13 16:49 | XMS_ITS | Encounter Summary ---
Author Organization [employer] Address [address] [place] [address] Care Team Providers Care Bookstore Manager Name Role Phone Jill Feliciano MD Primary Care Provider [phone] Encounter Details Date Type Department Care Team ([facility] Contact Info) Description 01/22/2023 Orders Only [facility] [address] [place] [address] [phone] ProviderNayeli MD Social History Tobacco Use Types Packs/Day Years [...] Description 09/05/2024 10:30 AM EDT Office Visit [facility] [address] [place] [address] [phone] Jill Feliciano MD [address] [place] [address] [phone] documented as of this encounter Procedures Procedure Name Priority Date/Time Associated Diagnosis Comments CULTURE, URINE, ROUTINE Routine 04/26/2023 12:00 AM EST HM COLONOSCOPY Routine 07/29/2017 documented in this encounter Results * Culture, Urine, Routine (04/26/2023 12:00 AM EST) Urine Urine specimen obtained by clean catch procedure / Unknown 04/26/2023 04/26/2023 Comment:[facility] [[email or web address]] Narrative [facility] - 04/27/2023 8:21 AM EST Urine Culture No growth. Specimen Source: Urine clean catch Jill Feliciano MD LAB MICROBIOLOGY - GENERAL ORD ERABLES Final Result [facility] [address] [place] [phone] * Colonoscopy (07/29/2017) us Historical Provider HEALTH MAINTENANCE Final Result documented in this encounter Visit Diagnoses Not on filedocumented in this encounter Additional Health Concerns Assessment Noted Time PHQ-9 Depression Total Score: 0 06/12/19 23 11:12 AM EST documented as of this encounter Care Teams Bookstore Manager Relationship Specialty Start Date End Date Jill Feliciano MD [address] [place] [phone] PCP - General Family Medicine 01/13/22 documented as of this encounter
--- OUTSIDE RECORDS SUMMARY | 2024-07-13 16:49 | XMS_ITS | Encounter Summary ---
Author Organization [employer] Address [address] [place] [address] Care Team Providers Care Freight Solicitor Name Role Phone Jill Feliciano MD Primary Care Provider [phone] Encounter Details Date Type Department Care Team (Late st Contact Info) Description 06/16/2023 Telephone [facility] [address] [place], [place] [phone] Jill Feliciano MD [address] [place], [place] [phone] Social History Tobacco Use Types Packs/Day Years Used Date Smoking Tobacco: Former Cigarettes Smokeless Tobacco: Never Alcohol Use Standard Drinks/Week Comments Never 0 (1 standard drink = 0.6 oz pur e alcohol) Depression Answer Date Recorded Patient Health Questionnaire-9 Score 0 06/12/2022 Housing Stability Answer Date Recorded What is your housing situation today? I have jorge rizzo 03/08/[address] you li ve. Do you have problems with any of the following? None of the above 03/08/2023 Food Insecurity Answer Date Recorded Within the past 12 months, y ou worried that your food would run out before you got money to buy more: Never True 03/08/2023 Within the past 12 months,th e food you bought just didn't last and you didn't have enough money to get more: Never True Transportation Answer Date Recorded In the past 12 months, has l ack of transportation kept you from medical appts, meetings, work or from getting things needed for daily living? No 03/08/2023 Utilities Answer Date Recorded In the past 12 months, has t he electric, gas, oil or water company threatened to shut off services in your home? No 03/08/2023 Depression Answer Date Recorded Patient Health Questionnaire-2 [...] Description 09/05/2024 10:30 AM EDT Office Visit [facility] [address] [place] [address] Jill Feliciano MD [address] [place] [address] documented as of this encounter Visit Diagnoses Not on filedocumented in this encounter Additional Health Concerns Assessment Noted Time PHQ-9 Depression Total Score: 0 06/12/19 23 11:12 AM EST documented as of this encounter Care Teams Freight Solicitor Relationship Specialty Start Date End Date Jill Feliciano MD [address] [place] [address] PCP - General Family Medicine 01/13/22 documented as of this encounter
--- OUTSIDE RECORDS SUMMARY | 2024-07-13 16:49 | XMS_ITS | Encounter Summary ---
Author Organization [employer] Address [address] [place] [address] Care Team Providers Care Forest Management Professor Name Role Phone Jill Feliciano MD Primary Care Provider [phone] Encounter Details Date Type Department Care Team (Late st Contact Info) Description 02/07/2024 Orders Only [facility] [address] [place], [place] [phone] Jill Feliciano MD [address] [place], [place] [phone] Social History Tobacco Use Types Packs/Day Years [...] Description 09/05/2024 10:30 AM EDT Office Visit [facility] [address] [place] [address] Jill Feliciano MD [address] [place] [address] documented as of this encounter Visit Diagnoses Not on filedocumented in this encounter Additional Health Concerns Assessment Noted Time PHQ-9 Depression Total Score: 0 07/23/19 24 10:42 AM EST documented as of this encounter Care Teams Forest Management Professor Relationship Specialty Start Date End Date Jill Feliciano MD [address] [place] [phone] PCP - General Family Medicine 01/13/22 documented as of this encounter
--- OUTSIDE RECORDS SUMMARY | 2024-07-13 16:49 | XMS_ITS | Encounter Summary ---
Author Organization [employer] Address [address] [place] [address] Care Team Providers Care Crm Marketing Manager Name Role Phone Jill Feliciano MD Primary Care Provider [phone] Encounter Details Date Type Department Care Team (Late st Contact Info) Description 05/18/2024 Orders Only [facility] [address] [place], [place] [phone] Jill Feliciano MD [address] [place], [place] [phone] Social History Tobacco Use Types Packs/Day Years [...] Description 09/05/2024 10:30 AM EDT Office Visit [facility] [address] [place] [address] Jill Feliciano MD [address] [place] [address] documented as of this encounter Visit Diagnoses Not on filedocumented in this encounter Additional Health Concerns Assessment Noted Time PHQ-9 Depression Total Score: 0 07/23/19 24 10:42 AM EST documented as of this encounter Care Teams Crm Marketing Manager Relationship Specialty Start Date End Date Jill Feliciano MD [address] [place] [phone] PCP - General Family Medicine 01/13/22 documented as of this encounter
--- OUTSIDE RECORDS SUMMARY | 2024-07-13 16:49 | XMS_ITS | Clinical Summary ---
Author Organization [facility] Address [address] [place] [address] Phone Care Team Providers Care Gas Appliance Servicer Name Role Phone Physician, No Pcp Primary Care Provider Unavaila ble Allergies No known active allergies Encounters Date Type Department Care Team Description 05/08/2024 5:29 PM EST - 05/08/2024 10:56 PM EST [facility] Emergency [address] [place] [id number] Keenan Fajardo MD Fall, initial encounter (Primary Dx); Prolonged Q-T interval on ECG; Dehydration; Head injury, initial encounter Discharge Disposition: Home or Self Care 05/04/2024 Lab Requisition [facility] - Main Lab [address] [facility] [place] [id number] Selene Machado PA Gross hematuria from Last 3 Months Social History Tobacco Use Types Packs/Day Years Used Date Smoking Tobacco: Never Assessed Sex and Gender Information Value Date Recorded Sex Assigned at Male 05/08/2024 6:57 PM EST Legal Sex Male 1:39 PM EST Gender Identity Male 05/08/2024 6:57 PM EST Sexual Orientation Straight 05/08/2024 6: 57 PM EST Last Filed Vital Signs Vital Sign Reading Time Taken Comments Blood Pressure 128/76 05/08/2024 10:52 PM EST Pulse 90 05/08/2024 10:52 PM EST Temperature 37.1 ??C (98.7 ??F) 05/08/2024 10:[address] Respiratory Rate 18 05/08/2024 10:52 PM EST Oxygen Saturation 97% 05/08/2024 10:52 PM EST Inhaled Oxygen Concentration - - Weight 82.6 kg (182 lb) 05/08/2024 5:52 PM EST Height 167.6 cm (5' 6 ) 05/08/2024 5:52 PM EST Body Mass Index 29.38 05/08/2024 5:52 PM EST Plan of Treatment Health Maintenance Due Date Last Done Comments Zoster Vaccines (1 of 2) 09/21/1964 COVID-19 Vaccine (3 - Pfizer risk series) 09/05/2020 08/08/2020, 07/18/2020 RSV Immunization Patients 60 + Years Old (1 - 1-dose 75+ series) 09/21/2022 Influenza Vaccine (#1) 2024 06/22/2017 Falls Risk Assessment 05/04/2024 Hepatitis C Screening 05/04/2024 Medicare Annual Wellness Visit 05/04/2024 Social Influencers of Health Screening 05/04/2024 Depression Screening 07/22/2024 07/23/2023 Hypertension/CHF/CAD Annual BMP Blood Test 05/08/2025 05/08/2024, 04/10/2024 Cholesterol Screening (Lipid Panel) 04/26/2028 04/26/2023 DTaP,Tdap,and Td Vaccines (2 - Td or Tdap) 10/09/2031 10/08/2021 Pneumococcal Vaccine: 50+ Years Completed 08/11/2021, 06/22/2017 HIB Vaccines Aged Out No longer eligi [...] on patient's age to complete this topic MMR Vaccines Aged Out No longer eligi ble based on patient's age to complete this topic Meningococcal ACWY Vaccine Aged Out N o longer eligible based on patient's age to complete this topic Meningococcal B Vacine Aged Out No lo nger eligible based on patient's age to complete this topic RSV Immunization Patients Under 20 months Aged Out No longer eligible b ased on patient's age to complete this topic Varicella Vaccines Aged Out No longer eligible based on patient's age to complete this topic Procedures Procedure Name Priority Date/Time Associated Diagnosis Comments CT MAXILLOFACIAL WO CONTRAST STAT 05/08/2024 8:[address] HEAD WO CONTRAST STAT 05/08/2024 8 :07 PM EST TROPONIN I HIGH SENSITIVITY STAT 05/08/2024 7:32 PM EST ECG 12-LEAD STAT 05/08/2024 5:58 PM EST CBC WITH AUTO DIFFERENTIAL STAT 05/08/2024 5:50 PM EST TROPONIN I HIGH SENSITIVITY STAT 05/08/2024 5:50 PM EST MAGNESIUM STAT 05/08/2024 5:50 PM EST BASIC METABOLIC PANEL STAT 05/08/2024 5:50 PM EST CBC AND DIFFERENTIAL STAT 05/08/2024 5:50 PM EST XR CHEST 1 VIEW STAT 05/08/2024 5:47 PM EST ECG OUTSIDE 05/08/2024 ECG ANNOTATED 05/08/2024 AP OUTSIDE CONSULT Routine 04/28/2024 12 :00 AM EST Gross hematuria from Last 3 Months Results * CT Maxillofacial wo Contrast (05/08/2024 8:07 PM EST) Anatomical Region Laterality Modality Head and Neck Computed Tomogra phy 05/08/2024 8:25 PM EST Impressions 05/08/2024 8:25 PM EST 1. No evidence of injury to the facial bones or orbital soft tissue. This document has been electronically signed by: Moises Mtz MD on 05/08/2024 20:25:50 Narrative 05/08/2024 8:[address] maxillofacial without contrast. COMPARISON: None FINDINGS: Soft tissue edema overlying the right periorbital region. Orbital soft tissues and bony orbits appear intact bilaterally. No postseptal or retrobulbar hematoma. Intact appearance of the nasal bones and nasal septum. The nasal septum is midline. Nasal fossa is unremarkable. Mild mucosal thickening present within the right maxillary sinus. The maxilla and nasal spine are intact. There is no evidence of fracture within the bilateral zygomatic arches or the bilateral pterygoid plates. There is no evidence of mandibular fracture or subluxation. Temporomandibular joints are intact. No skull base fracture is identified. The mastoid air cells are clear. Visualized intracranial structures are unremarkable. Flowing marginal osteophytes present throughout the cervical spine. Procedure Note Moises Mtz MD - 05/08/2024 CT maxillofacial without contrast. COMPARISON: None FINDINGS: Soft tissue edema overlying the right periorbital region. Orbital soft tissues and bony orbits appear intact bilaterally. No postseptal or retrobulbar hematoma. Intact appearance of the nasal bones and nasal septum. The nasal septumis midline. Nasal fossa is unremarkable. Mild mucosal thickening present within the right maxillary sinus. The maxilla and nasal spine are intact. There is no evidence of fracture within the bilateral zygomatic archesor the bilateral pterygoid plates. There is no evidence of mandibular fracture or subluxation. Temporomandibular joints are intact. No skull base fracture is identified. The mastoid air cells are clear. Visualized intracranial structures are unremarkable. Flowing marginal osteophytes present throughout the cervical spine. IMPRESSION: 1. No evidence of injury to the facial bones or orbital soft tissue. This document has been electronically signed by: Moises Mtz MD on 05/08/2024 20:25:50 Keenan Fajardo MD IM CT PROCEDURES Final Res ult * CT Head wo Contrast (05/08/2024 8:07 PM EST) Anatomical Region Laterality Modality Head and Neck Computed Tomogra phy 05/08/2024 8:19 PM EST Impressions 05/08/2024 8:19 PM EST 1. No acute intracranial findings. This document has been electronically signed by: Moises Mtz MD on 05/08/2024 20:19:29 Narrative 05/08/2024 8:[address] head without contrast. COMPARISON: None FINDINGS: The visualized paranasal sinuses are clear. The mastoid air cells are clear. No calvarial fracture. Atherosclerotic intracranial vasculature. No evidence for mass or mass effect. No intracranial hemorrhage or abnormal extra-axial fluid collection. No CT evidence of acute infarct. Chronic lacunar infarct versus prominent perivascular space present within the left basal ganglia. The ventricles are proportional with the degree of moderate global cerebral volume loss without evidence of hydrocephalus. Basilar cisterns are patent. There are periventricular areas of low attenuation compatible with moderate white matter small vessel disease. Posterior fossa appears unremarkable. Procedure Note Moises Mtz MD - 05/08/2024 CT head without contrast. COMPARISON: None FINDINGS: The visualized paranasal sinuses are clear. The mastoid air cells are clear. No calvarial fracture. Atherosclerotic intracranial vasculature. No evidence for mass or mass effect. No intracranial hemorrhage or abnormal extra-axial fluid collection. No CT evidence of acute infarct. Chronic lacunar infarct versusprominent perivascular space present within the left basal ganglia. The ventricles are proportional with the degree of moderate global cerebral volume loss without evidence of hydrocephalus. Basilar cisterns are patent. There are periventricular areas of low attenuation compatible with moderate white matter small vessel disease. Posterior fossa appears unremarkable. IMPRESSION: 1. No acute intracranial findings. This document has been electronically signed by: Moises Mtz MD on 05/08/2024 20:19:29 Keenan Fajardo MD IM CT PROCEDURES Final Res ult * Troponin I high sensitivity (05/08/2024 7:32 PM EST) Only the most recent of2 resultswithin the time period is included. High Sensitivity Troponin I 19 <=79 ng/L LAB CHEMISTRY METHOD 05/08/2024 8:35 PM EST [facility] Blood Venous blood specimen / Unknown Venipuncture / Unknown 05/08/2024 7:32 PM EST 05/08/2024 7:55 PM EST Narrative [facility] - 05/08/2024 8:35 PM EST High levels of biotin in samples may falsely decrease hsTroponin values. ??Use caution when interpreting hsTroponin results in patients taking biotin who exhibit renal impairment (eGFR <60) or in patients taking more than 20 mg/day of biotin. Keenan Fajardo MD LAB BLOOD ORDERABLES Final Result Performing Organization Address [facility] Co de Phone Number [facility] [address] [place] [address], [place] [phone] * ECG 12 lead (05/08/2024 5:58 PM EST) Ventricular Rate ECG 93 BPM GEMUSE Atrial Rate 93 BPM GEMUSE P-R Interval 178 ms GEMUSE QRS Duration 86 ms GEMUSE Q-T Interval 404 ms GEMUSE QTc 502 ms GEMUSE P Wave [place] 30 degrees GEMUSE R [place] 1 degrees GEMUSE T [place] 55 degrees GEMUSE ECG Interpretation Normal sinus rhythm Possible Left atrial enlargement Prolonged QT Abnormal ECG No previous ECGs available Confirmed by Abelardo WATSON JAMES ([id number]) on 05/09/2024 5:00:47 PM GEMUSE 05/08/2024 5:58 PM EST 05/09/2024 5:00 PM EST Keenan Fajardo MD ECG ORDERABLES Final Resul t Performing Organization Address [facility] Co de Phone Number GEMUSE * (ABNORMAL) CBC auto differential (05/08/2024 5:50 PM EST) WBC 10.0 4.8 - 10.8 K/mcL LAB HEMETOLOGY METHOD 05/08/2024 6:41 PM [facility] RBC 5.40 4.50 - 5.50 M/mcL LAB HEMETOLOGY METHOD 05/08/2024 6:41 PM [facility] Hemoglobin 16.3 13.5 - 17.5 g/dL LAB HEMETOLOGY METHOD 05/08/2024 6:41 PM [facility] Hematocrit 50.2 42.0 - 54.0 % LAB HEMETOLOGY METHOD 05/08/2024 6:41 PM EST [facility] MCV 93.7 79.0 - 98.0 FL LAB HEMETOLOGY METHOD 05/08/2024 6:41 PM [facility] MCH 30.4 27.0 - 32.0 pcg LAB HEMETOLOGY METHOD 05/08/2024 6:41 PM [facility] MCHC 32.5 32.0 - 37.0 g/dL LAB HEMETOLOGY METHOD 05/08/2024 6:41 PM [facility] RDW 13.2 11.0 - 15.0 % LAB HEMETOLOGY METHOD 05/08/2024 6:41 PM [facility] Platelets 267 130 - 400 K/mcL LAB HEMETOLOGY METHOD 05/08/2024 6:41 PM [facility] MPV 10.0 7.0 - 11.0 FL LAB HEMETOLOGY METHOD 05/08/2024 6:41 PM [facility] NRBC 0.0 <1.0 % LAB HEMETOLOGY METHOD 05/08/2024 6:41 PM [facility] NRBC Absolute 0.00 <0.10 K/mcL LAB HEMETOLOGY METHOD 05/08/2024 6:41 PM [facility] Neutrophils Relative 83.2 % LAB HEMETOLOGY METHOD 05/08/2024 6:41 PM [facility] Lymphocytes Relative 7.7 % LAB HEMETOLOGY METHOD 05/08/2024 6:41 PM [facility] Monocytes Relative 7.9 % LAB HEMETOLOGY METHOD 05/08/2024 6:41 PM [facility] Eosinophils Relative 0.4 % LAB HEMETOLOGY METHOD 05/08/2024 6:41 PM [facility] Basophils Relative 0.4 % LAB HEMETOLOGY METHOD 05/08/2024 6:41 PM [facility] Immature Granulocytes Relative 0.4 % LAB HEMETOLOGY METHOD 05/08/2024 6:41 PM EST [facility] Neutrophils Absolute 8.28(H) 1.50 - 7.00 K/mcL LAB HEMETOLOGY METHOD 05/08/2024 6:41 PM EST [facility] Lymphocytes Absolute 0.77(L) 1.00 - 5.00 K/mcL LAB HEMETOLOGY METHOD 05/08/2024 6:41 PM EST [facility] Monocytes Absolute 0.79 0.20 - 1.00 K/mcL LAB HEMETOLOGY METHOD 05/08/2024 6:41 PM EST [facility] Eosinophils Absolute 0.04 0.00 - 0.50 K/[facility] LAB HEMETOLOGY METHOD 05/08/2024 6:41 PM EST [facility] Basophils Absolute 0.04 0.00 - 0.20 K/mcL LAB HEMETOLOGY METHOD 05/08/2024 6:41 PM EST [facility] Immature Granulocytes Absolute 0.04(H) 0.00 - 0.03 K/[facility] LAB HEMETOLOGY METHOD 05/08/2024 6:41 PM EST [facility] Blood Venous blood specimen / Unknown Venipuncture / Unknown 05/08/2024 5:50 PM EST 05/08/2024 6:13 PM EST Keenan Fajardo MD LAB BLOOD ORDERABLES Final Result [facility] [address] [place] [address], * Magnesium (05/08/2024 5:50 PM EST) Magnesium 2.2 1.9 - 2.6 mg/dL LAB CHEMISTRY METHOD 05/08/2024 7:04 PM EST [facility] Blood Venous blood specimen / Unknown Venipuncture / Unknown 05/08/2024 5:50 PM EST 05/08/2024 6:13 PM EST us Keenan Fajardo MD LAB BLOOD ORDERABLES Final Result [facility] [address] [place] [address], [place] [phone] * (ABNORMAL) Basic metabolic panel (05/08/2024 5:50 PM EST) Sodium 138 133 - 145 mmol/L LAB CHEMISTRY METHOD 05/08/2024 7:04 PM [facility] Potassium 4.9 3.5 - 5.5 mmol/L LAB CHEMISTRY METHOD 05/08/2024 7:04 PM [facility] Chloride 106 96 - 110 mmol/L LAB CHEMISTRY METHOD 05/08/2024 7:04 PM [facility] CO2 26 21 - 32 mmol/L LAB CHEMISTRY METHOD 05/08/2024 7:04 PM [facility] Anion Gap 6 3 - 11 LAB CHEMISTRY METHOD 05/08/2024 7:04 PM [facility] Glucose 172(H) 70 - 100 mg/dL LAB CHEMISTRY METHOD 05/08/2024 7:04 PM [facility] BUN 27(H) 5 - 25 mg/dL LAB CHEMISTRY METHOD 05/08/2024 7:04 PM [facility] Creatinine 1.76(H) 0.70 - 1.30 mg/dL LAB CHEMISTRY METHOD 05/08/2024 7:04 PM [facility] eGFR 40(L) >=60 mL/min/1. 73m2 LAB CHEMISTRY METHOD 05/08/2024 7:04 PM [facility] Comment:Calculation based on the??Chronic Kidney Disease Epidemiology Collaboration (CKD-EPI) equation refit??without adjustment for race. BUN/Creatinine Ratio 15.3 LAB CHEMISTRY METHOD 05/08/2024 7:04 PM [facility] Calcium 9.1 8.5 - 10.5 mg/dL LAB CHEMISTRY METHOD 05/08/2024 7:04 PM EST [facility] Blood Venous blood specimen / Unknown Venipuncture / Unknown 05/08/2024 5:50 PM EST 05/08/2024 6:13 PM EST us Keenan Fajardo MD LAB BLOOD ORDERABLES Final Result [facility] [address] [place] [address], [place] [phone] * XR Chest 1 View (05/08/2024 5:47 PM EST) Anatomical Region Laterality Modality Body Radiographic Milagros ging 05/09/2024 8:47 AM EST Impressions 05/09/2024 8:48 AM EST No acute pulmonary disease. Code 38563 -------- FINAL REPORT -------- Dictated By: Walter Tarango Dictated Date: 05/09/2024 08:47 ET Assigned Physician: Walter Tarango Reviewed and Electronically Signed By: Walter Tarango Signed Date: 05/09/2024 08:48 ET Workstation ID: [id number] Transcribed By: Self Edit Transcribed Date: 05/09/2024 08:47 ET Narrative 05/09/2024 8:48 AM EST HISTORY: The patient is a 78-year-old male with dyspnea. FINDINGS: AP portable radiograph of the chest, without previous for comparison, demonstrates degenerative changes of the thoracic spine. The cardiac silhouette is within normal limits. The aortic knob is calcified. The lungs and costophrenic angles are clear. Procedure Note Walter Tarango MD - 05/09/2024 HISTORY: The patient is a 78-year-old male with dyspnea. FINDINGS: AP portable radiograph of the chest, without previous forcomparison, demonstrates degenerative changes of the thoracic spine. Thecardiac silhouette is within normal limits. The aortic knob is calcified.The lungs and costophrenic angles are clear. IMPRESSION: No acute pulmonary disease. Code 80604 -------- FINAL REPORT -------- Dictated By: Walter Tarango Dictated Date: 05/09/2024 08:47 ET Assigned Physician: Walter Tarango Reviewed and Electronically Signed By: Walter Tarango Signed Date: 05/09/2024 08:48 ET Workstation ID: [id number] Transcribed By: Self Edit Transcribed Date: 05/09/2024 08:47 ET us Keenan Fajardo MD IMG XR PROCEDURES Final Res ult * ECG-Outside (05/08/2024) Provider Onbase MD ECG ORDERABLES Final Result * ECG-Annotated (05/08/2024) Provider Onbase MD ECG ORDERABLES Final Result * Anatomic pathology outside consult (04/28/2024 12:00 AM EST) Addendum Results of UroVysion fluorescence in situ hybridization (FISH) testing: CEP3: Normal CEP7: Normal CEP17: Normal LSI 9p21: Normal Interpretation: Normal profile Controls stained appropriately. Note: The results are intended as a screening device and should be interpreted in association with other clinical and pathological findings. 05/22/2024 4:05 PM [facility] Addendum electronically signed by Isabel Jiang MD on 05/22/2024 at 4:05 PM Final Diagnosis Urine, Voided ([id number]): Atypical urothelial cells with squamous differentiation. Note: UroVysion testing to follow. 05/22/2024 4:05 PM [facility] Clinical Information [id number] Urine cytology/urine FISH 05/22/2024 4:05 PM [facility] Gross Description A. Urine, Voided, : [id number] RECD 1 TP CYTO 1 TP FISH. 05/22/2024 4:05 PM EST [facility] Disclaimer Unless otherwise specified, all tissue is 10% NB formalin fixed and paraffin embedded. Technical pathology services provided by [facility] at [address], [place] [address] (CLIA #[id number]/Anna Shook MD, Vp Sales) 05/22/2024 4:05 PM EST [facility] Tissue Urine specimen from urethra / Unknown 04/28/2024 05/04/2024 1:46 PM EST Selene NELSON LAB PATHOLOGY ORDERABLES Edit ed Result - Final [facility] [address] [place] [address], [place] [phone] from Last 3 Months Insurance [employer] MEDICARE ADVANTAGE MEDICAID - [place] Care Teams Gas Appliance Servicer Relationship Specialty Start Date End Date Physician, No Pcp PCP - General 05/08/24
--- OUTSIDE RECORDS SUMMARY | 2024-07-13 16:49 | XMS_ITS | Encounter Summary ---
Author Organization [facility] Address [address] [place] [address] Care Team Providers Care Quality Control Inspector Heading Name Role Phone Physician, No Pcp Primary Care Provider Unavaila ble Encounter Details Date Type Department Care Team (Late st Contact Info) Description 05/04/2024 Lab Requisition [facility] - Main Lab [address] [facility] [place] [address] Selene Machado PA [address] [place] [address] Gross hematuria Social History Tobacco Use Types Packs/Day Years Used Date Smoking Tobacco: Never Assessed Sex and Gender Information Value Date Recorded Sex Assigned at Male 05/08/2024 6:57 PM EST Legal Sex Male 1:39 PM EST Gender Identity Male 05/08/2024 6:57 PM EST Sexual Orientation Straight 05/08/2024 6: 57 PM EST documented as of this encounter Plan of Treatment Not on file documented as of this encounter Procedures Procedure Name Priority Date/Time Associated Diagnosis Comments AP OUTSIDE CONSULT Routine 04/28/2024 12 :00 AM EST Gross hematuria documented in this encounter Results * Anatomic pathology outside consult (04/28/2024 12:00 AM EST) Addendum Results of UroVysion fluorescence in situ hybridization (FISH) testing: CEP3: Normal CEP7: Normal CEP17: Normal LSI 9p21: Normal Interpretation: Normal profile Controls stained appropriately. Note: The results are intended as a screening device and should be interpreted in association with other clinical and pathological findings. 05/22/2024 4:05 PM EST [facility] ([facility]) [facility] Addendum electronically signed by Isabel Jiang MD on 05/22/2024 at 4:05 PM Final Diagnosis Urine, Voided ([id number]): Atypical urothelial cells with squamous differentiation. Note: UroVysion testing to follow. 05/22/2024 4:05 PM [facility] Clinical Information [id number] Urine cytology/urine FISH 05/22/2024 4:05 PM [facility] Gross Description A. Urine, Voided, : [id number] RECD 1 TP CYTO 1 TP FISH. 05/22/2024 4:05 PM [facility] Disclaimer Unless otherwise specified, all tissue is 10% NB formalin fixed and paraffin embedded. Technical pathology services provided by [facility] at [address] [place] [address] [address], [place] [address] (CLIA #[id number]/Anna Shook MD, Seasonal Tax Preparer) 05/22/2024 4:05 PM [facility] Tissue Urine specimen from urethra / Unknown 04/28/2024 05/04/2024 1:46 PM EST Selene NELSON LAB PATHOLOGY ORDERABLES Edit ed Result - Final [facility] [address] [place] [address], documented in this encounter Visit Diagnoses Diagnosis Gross hematuria documented in this encounter Care Teams Quality Control Inspector Heading Relationship Specialty Start Date End Date Physician, No Pcp PCP - General 05/08/24 documented as of this encounter
[2024-07-13 17:51] LABS: MANUAL DIFF FLAG NO
[2024-07-13 18:14] LABS: Basophils Absolute Auto 0.1 X10*3/uL (0.0-0.2); Basophils Percent Auto 0.5 % (0-2); Eosinophils Absolute Auto 0.1 X10*3/uL (0.0-0.4); Eosinophils Percent Auto 1.1 % (0-4); Hematocrit 51.7 % (42.0-52.0); Hemoglobin 17.7 g/dl (14.0-18.0); Imm Gran Abs Auto 0.06 X10*3/uL (0.00-0.03); Imm Gran Pct Auto 0.6 % (0.0-0.4); Mean Corpuscular HGB Conc 34.2 g/dl (31.0-36.0); Mean Corpuscular Hemoglobin 30.7 pg (27.0-33.0); Mean Corpuscular Volume 89.8 fL (80.0-98.0); Mean Platelet Volume 9.8 fL (9.4-12.4); Monocytes Absolute Auto 0.8 X10*3/uL (0.1-1.2); Monocytes Percent Auto 8.1 % (2-11); Neutrophils Absolute Auto 6.5 x10*3/uL (2.0-8.3); Neutrophils Percent Auto 68.7 % (45-73); Platelet Count 312 X10*3/uL (160-400); Red Blood Count 5.76 X10*6/uL (4.60-5.80); Red Cell Distribution Width 12.4 % (11.0-16.0); White Blood Count 9.5 X10*3/uL (4.8-10.8)
[2024-07-13 18:16] LABS: Basophils Absolute Auto 0.1 X10*3/uL (0.0-0.2); Basophils Percent Auto 0.6 % (0-2); Eosinophils Absolute Auto 0.1 X10*3/uL (0.0-0.4); Eosinophils Percent Auto 0.8 % (0-4); Hematocrit 52.2 % (42.0-52.0); Hemoglobin 17.8 g/dl (14.0-18.0); Imm Gran Abs Auto 0.04 X10*3/uL (0.00-0.03); Imm Gran Pct Auto 0.4 % (0.0-0.4); Lymphocytes Absolute Auto 2.1 X10*3/uL (1.2-4.9); Lymphocytes Percent Auto 21.1 % (20-40); Mean Corpuscular HGB Conc 34.1 g/dl (31.0-36.0); Mean Corpuscular Hemoglobin 30.7 pg (27.0-33.0); Monocytes Absolute Auto 0.9 X10*3/uL (0.1-1.2); Monocytes Percent Auto 8.8 % (2-11); Neutrophils Absolute Auto 6.6 x10*3/uL (2.0-8.3); Neutrophils Percent Auto 68.3 % (45-73); Platelet Count 304 X10*3/uL (160-400); Red Cell Distribution Width 12.5 % (11.0-16.0); White Blood Count 9.7 X10*3/uL (4.8-10.8)
[2024-07-13 18:29] LABS: Alanine Aminotransferase 32 U/L (0-40); Albumin Level 4.7 g/dL (3.5-5.0); Alkaline Phosphatase 90 U/L (39-117); Anion Gap 14 (12-20); Aspartate Amino Transferase 42 U/L (5-37); Bilirubin Total 0.5 mg/dL (0.0-1.0); Blood Urea Nitrogen 16 mg/dL (9-16); Calcium 9.8 mg/dL (8.4-10.2); Carbon Dioxide 26 mmol/L (22-29); Chloride 102 mmol/L (96-108); Estimated Glomerular Filt Rate > 60; Glucose Random 107 mg/dL (60-115); Sodium 137 mmol/L (135-145); Total Protein 9.6 g/dL (6.5-8.0)
== END 2024-07-13 16:17 | disposition home or self-care (01) ==
LOC: HO.HHCL 16:16
PROVIDERS: General Practice; Visit Provider Nurse Practitioner
DX: D45 Polycythemia vera (principal); N39.0 Urinary tract infection, site not specified; N64.4 Mastodynia
CPT/HCPCS: 36415; 80053; 85025

== ENCOUNTER 2024-08-14 08:04 | Outpatient (REF) | payer MEDICARE, SELFPAY ==
--- NOTE | ~2024-08-14 | US_ITS ---
EXAMINATION: MM DIAGNOSTIC DIGITAL BREAST TOMOSYNTHESIS, BILATERAL Bilateral Limited ultrasound. CLINICAL INFORMATION: Left breast pain and swelling. COMPARISON: Mammography: Comparison is made with relevant prior exams. TECHNIQUE: Digital breast mammography with tomosynthesis is performed in both the craniocaudal and mediolateral oblique views along with computer-aided detection (CAD). FINDINGS: There is left greater than right retroareolar flame-shaped gynecomastia which is benign. No suspicious masses calcifications or other abnormal findings. Targeted color Doppler ultrasound scanning in the bilateral retroareolar regions demonstrates bilateral benign appearing retroareolar gynecomastia. No suspicious sonographic findings. Results are provided to the patient at time of visit by the technologist. US/US breast BI limited mamm only IMPRESSION: Bilateral left greater than right retroareolar gynecomastia. Benign. Recommend clinical evaluation and follow-up. ASSESSMENT: BI-RADS BI-RADS 2 - Benign Findings RECOMMENDATION: Clinical followup recommended. This patient's information was entered into a reminder system with a target due date for their next mammogram. Electronically signed by: Zaina Fernández DO 08/14/2024 09:48 AM EDT
== END 2024-08-14 08:05 | disposition home or self-care (01) ==
LOC: HO.MAMMO 08:04
PROVIDERS: PCP General Practice; Visit Provider Nurse Practitioner
DX: N64.4 Mastodynia (principal)
CPT/HCPCS: 76642; 77062; 77066

== ENCOUNTER → 2024-08-14 08:30 | Outpatient (BNV) | payer MEDICARE, SELFPAY | PROVIDERS: PCP General Practice; Visit Provider Internal Medicine | DX: N64.4 Mastodynia (principal) | CPT/HCPCS: 76642; 77066; G0279 ==

== ENCOUNTER → 2024-09-27 11:20 | Outpatient (BNV) | payer MEDICARE, SELFPAY | PROVIDERS: PCP General Practice; Visit Provider Internal Medicine | DX: D75.1 Secondary polycythemia (principal) | CPT/HCPCS: 99204; G2211 ==